=== PATIENT | female | born 1970 | race Hispanic/Latino ===

== ENCOUNTER → 2025-01-18 | Outpatient (REF) | payer OTHER ==
[~2025-01-18] MED LIST: ASPIRIN81 MG PO; LEVOTHYROXINE75 MCG PO; LIPITOR10 MG PO; METOPROLOL SUCC50 MG PO; SPIRONOLACTONE25 MG PO
== END ==
LOC: US 11:01
PROVIDERS: ATTEND Nurse Practitioner
DX: R10.10 Upper abdominal pain, unspecified (principal); R19.00 Intra-abdominal and pelvic swelling, mass and lump, unspecified site; K59.09 Other constipation
CPT/HCPCS: 76700

== ENCOUNTER → 2025-01-30 | Day surgery (SDC) | payer OTHER ==
[~2025-01-30] MED LIST changes: +CYMBALTA30 MG PO; +FENTANYL CITRATE/PF 100MCG/2 ML INJ ONE; +LIDOCAINE HCL 2% LOCAL INJ 5 ML SDV VIAL INJ ONE; +PROPOFOL IV EMULSION 10 MG/ML 20 ML VIAL ONE
[2025-01-30] MEDS: LACTATED RINGER'S 1,000 ML ONE (10:46)
[2025-01-30 12:29] VITALS: TEMP 97.3
[2025-01-30 12:45] VITALS: BP 151/89; PULSE 65; RESP 16; O2SAT 96
== END | disposition home or self-care (01) ==
LOC: OR 09:58
PROVIDERS: ATTEND Internal Medicine Gastroenterology
DX: K29.50 Unspecified chronic gastritis without bleeding (principal); K22.2 Esophageal obstruction; K22.89 Other specified disease of esophagus; K27.9 Peptic ulcer, site unspecified, unspecified as acute or chronic, without hemorrhage or perforation; K44.9 Diaphragmatic hernia without obstruction or gangrene; R19.00 Intra-abdominal and pelvic swelling, mass and lump, unspecified site; K59.09 Other constipation; R19.5 Other fecal abnormalities; Z86.0100 Personal history of colon polyps, unspecified; Z71.3 Dietary counseling and surveillance; E03.9 Hypothyroidism, unspecified; I10 Essential (primary) hypertension; Z71.89 Other specified counseling; E78.5 Hyperlipidemia, unspecified; E66.9 Obesity, unspecified; F32.A Depression, unspecified; Z88.0 Allergy status to penicillin; Z01.810 Encounter for preprocedural cardiovascular examination; Z79.899 Other long term (current) drug therapy; Z86.19 Personal history of other infectious and parasitic diseases
CPT/HCPCS: 43239; 43450; 93005; J2003; J2470; J2704; J3010; J7121